=== PATIENT | female | born 1950 | race American Indian/Alaskan Native ===

== ENCOUNTER 2017-01-20 11:20 | Day surgery (SDC) | payer MEDICARE ==
[~2017-01-20 11:20] MED LIST: IOPIDINE ONE; MYDRIACYL ONE; NEOFRIN ONE
[2017-01-20] MEDS ORDERED: NEOFRIN OD ONE (11:57)
[2017-01-20] MEDS ORDERED: MYDRIACYL OD ONE (11:57)
[2017-01-20] MEDS ORDERED: IOPIDINE OD ONE (11:57)
[2017-01-20 12:57] VITALS: BP 102/70
== END 2017-01-20 11:21 | disposition home or self-care (01) ==
LOC: OR 11:20
PROVIDERS: ATTEND Specialist
DX: H26.491 Other secondary cataract, right eye (principal)

== ENCOUNTER 2019-01-24 11:15 | Day surgery (SDC) | payer MEDICARE ==
[2019-01-24] MEDS ORDERED: NEOFRIN OS ONE (11:55)
[2019-01-24] MEDS ORDERED: IOPIDINE OS ONE (11:55)
[2019-01-24] MEDS ORDERED: MYDRIACYL OS ONE (11:55)
[2019-01-24 12:35] VITALS: BP 103/55
== END 2019-01-24 11:16 | disposition home or self-care (01) ==
LOC: OR 11:15
PROVIDERS: ATTEND Specialist
DX: H26.492 Other secondary cataract, left eye (principal); H40.9 Unspecified glaucoma; I10 Essential (primary) hypertension; F17.210 Nicotine dependence, cigarettes, uncomplicated; Z79.899 Other long term (current) drug therapy; Z98.41 Cataract extraction status, right eye; Z98.42 Cataract extraction status, left eye; Z98.891 History of uterine scar from previous surgery; Z72.89 Other problems related to lifestyle; Z98.890 Other specified postprocedural states; Z86.73 Personal history of transient ischemic attack (TIA), and cerebral infarction without residual deficits